=== PATIENT | female | born 1960 | race Caucasian/White ===

== ENCOUNTER 2017-12-13 17:36 | Emergency (ER) | payer OTHER ==
[~2017-12-13] VITALS: Ht 170.2 cm; Wt 57.0 kg
[2017-12-13] MEDS ORDERED: HYDROcodone/acetaminophen 5mg/325mg tablet PO ONE (21:00)
[2017-12-13 23:12] VITALS: BP 122/73
== END 2017-12-13 23:14 | disposition home or self-care (01) ==
LOC: ER 17:37
DX: I83.811 Varicose veins of right lower extremity with pain (principal); I80.01 Phlebitis and thrombophlebitis of superficial vessels of right lower extremity
CPT/HCPCS: 93971; 99284

== ENCOUNTER 2018-11-13 12:36 | Emergency (ER) | payer OTHER ==
[~2018-11-13] VITALS: Ht 170.2 cm; Wt 71.0 kg
[2018-11-13 13:32] LABS: ALANINE AMINOTRANSFERASE 18 U/L (12-78); ALBUMIN 3.8 G/DL (3.4-5.0); ALKALINE PHOSPHATASE 72 IU/L (46-116); ANION GAP 8 (8-16); ASPARTATE AMINO TRANSFERASE 13 U/L (10-37); BILIRUBIN,TOTAL 0.3 MG/DL (0.1-1.0); BLOOD UREA NITROGEN 11 MG/DL (7-18); BUN/CREATININE RATIO 17.2 (6.6-38.0); CALCIUM 9.5 MG/DL (8.5-10.1); CHLORIDE 106 MMOL/L (99-107); CREATININE 0.64 MG/DL (0.40-0.90); GLUCOSE 113 MG/DL (70-104); POTASSIUM 3.6 MMOL/L (3.5-5.1); SODIUM 143 MMOL/L (135-145); TOTAL CARBON DIOXIDE 28.7 MMOL/L (24-32); TOTAL PROTEIN 7.6 G/DL (6.4-8.2); eGFR > 90 ML/MIN
[2018-11-13 13:34] LABS: BASOPHILS % (AUTO) 0.7 % (0-1); EOSINOPHILS # (AUTO) 0.2 X10'3 (0-0.9); EOSINOPHILS % (AUTO) 5.1 % (0-6); HEMATOCRIT 35.1 % (35.0-45.0); HEMOGLOBIN 11.3 g/dl (12.0-16.0); LYMPHOCYTES # (AUTO) 1.7 X10'3 (1.1-4.8); LYMPHOCYTES % (AUTO) 38.9 % (21-51); MEAN CORPUSCULAR HEMOGLOBIN 26.3 PG (27.0-31.0); MEAN CORPUSCULAR HGB CONC 32.3 g/dL (33.0-36.5); MEAN CORPUSCULAR VOLUME 81.4 FL (78-98); MEAN PLATELET VOLUME 9.3 FL (7.4-10.4); MONOCYTES # (AUTO) 0.3 X10'3 (0-0.9); MONOCYTES % (AUTO) 6.2 % (2-12); NEUTROPHILS # (AUTO) 2.2 X10'3 (1.8-7.7); NEUTROPHILS % (AUTO) 49.1 % (42-75); PLATELET COUNT 203 X10'3 (140-440); RED BLOOD COUNT 4.31 X10'6 (4.20-5.60); WHITE BLOOD COUNT 4.4 X10'3 (4.5-11.0)
[2018-11-13 14:26] LABS: LIPASE 150 U/L (73-393)
[2018-11-13] MEDS ORDERED: iohexol 300mg/ml 100ml inj. ONE (14:27)
[2018-11-13 14:46] LABS: CLARITY,URINE SLIGHTLY CLOUDY (Clear); COLOR,URINE STRAW (Yellow); GLUCOSE, URINE NEGATIVE (Neg); KETONES,URINE NEGATIVE (Neg); LEUKOCYTE ESTERASE ,URINE SMALL (Neg); NITRITES, URINE NEGATIVE (Neg); OCCULT BLOOD,URINE TRACE-INTACT (Neg); PROTEIN,URINE NEGATIVE (Neg); UROBILINOGEN,URINE 0.2 E.U/dL (0.2-1.0)
[2018-11-13 14:47] LABS: UA COLLECTION TYPE CLN CATCH MIDSTREAM
--- NOTE | 2018-11-13 14:48 | NUR ---
IN CT SCAN
[2018-11-13 14:49] LABS: URINE HCG NEGATIVE (NEG)
[2018-11-13 14:55] LABS: SQUAMOUS EPITHELIAL CELL,UR MANY /LPF (FEW); TRANSITIONAL EPI CELLS,URINE MODERATE /HPF
[2018-11-13 14:56] LABS: MUCUS STRANDS MANY /LPF (Neg)
--- NOTE | 2018-11-13 14:56 | NUR ---
BACK FROM CT SCAN
[2018-11-13 14:58] LABS: BACTERIA,URINE FEW /HPF (Neg); RBC,URINE 0-2 /HPF (0-2)
--- NOTE | 2018-11-13 15:11 | NUR ---
SPOKE WITH DR DOMINGUEZ REGARDING PLAN OF CARE: NO NEED TO REPEAT UA, WAITING ON CT RESULTS
--- NOTE | 2018-11-13 15:15 | NUR ---
PREVIOUS NOTE WRITTENT BY DEEPAK ALEMAN
[2018-11-13 16:22] VITALS: BP 117/49
== END 2018-11-13 16:23 | disposition home or self-care (01) ==
LOC: ER 12:37
DX: R10.13 Epigastric pain (principal); D25.9 Leiomyoma of uterus, unspecified; R10.11 Right upper quadrant pain; R10.12 Left upper quadrant pain; Z98.890 Other specified postprocedural states
CPT/HCPCS: 36415; 74177; 80053; 81001; 81025; 83605; 83690; 85025; 85610; 93005; 99284; Q9967

== ENCOUNTER 2018-12-18 05:30 | Inpatient (IN) | payer OTHER ==
[2018-12-16 11:53] LABS: BASOPHILS % (AUTO) 0.9 % (0-1); EOSINOPHILS # (AUTO) 0.2 X10'3 (0-0.9); EOSINOPHILS % (AUTO) 3.5 % (0-6); LYMPHOCYTES # (AUTO) 1.5 X10'3 (1.1-4.8); LYMPHOCYTES % (AUTO) 32.8 % (21-51); MEAN CORPUSCULAR HEMOGLOBIN 27.6 PG (27.0-31.0); MEAN CORPUSCULAR HGB CONC 32.7 g/dL (33.0-36.5); MEAN CORPUSCULAR VOLUME 84.2 FL (78-98); MEAN PLATELET VOLUME 9.3 FL (7.4-10.4); MONOCYTES # (AUTO) 0.3 X10'3 (0-0.9); NEUTROPHILS # (AUTO) 2.5 X10'3 (1.8-7.7); NEUTROPHILS % (AUTO) 55.8 % (42-75); PRE OP HEMATOCRIT 38.7 % (35.0-45.0); PRE OP HEMOGLOBIN 12.7 g/dL (12.0-16.0); PRE OP PLATELET COUNT 204 X10'3 (140-440); RED BLOOD COUNT 4.59 X10'6 (4.20-5.60); RED CELL DISTRIBUTION WIDTH 19.1 % (11.5-14.5)
[2018-12-16 12:08] LABS: ALBUMIN 3.7 G/DL (3.4-5.0); ALBUMIN/GLOBULIN RATIO 0.9 (1.1-1.5); ALKALINE PHOSPHATASE 76 IU/L (46-116); BLOOD UREA NITROGEN 13 MG/DL (7-18); BUN/CREATININE RATIO 18.8 (6.6-38.0); CALCIUM 10.1 MG/DL (8.5-10.1); CHLORIDE 105 MMOL/L (99-107); CREATININE 0.69 MG/DL (0.40-0.90); PRE OP ALT 22 U/L (30-65); PRE OP ANION GAP 7 (8-16); PRE OP AST 16 U/L (10-37); PRE OP BILIRUB, TOTAL 0.4 MG/DL (0.0-1.0); PRE OP GLUCOSE 89 MG/DL (70-104); PRE OP SODIUM 141 MMOL/L (135-145); TOTAL CARBON DIOXIDE 29.5 MMOL/L (24-32); TOTAL PROTEIN 7.9 G/DL (6.4-8.2); eGFR 88 ML/MIN
[2018-12-16 16:27] LABS: ANISOCYTOSIS 2+; ELLIPTOCYTES FEW; PLATELET ESTIMATE NORMAL; POIKILOCYTOSIS FEW
[2018-12-16 16:28] LABS: ACANTHOCYTES FEW
[~2018-12-18] VITALS: Ht 170.2 cm; Wt 70.9 kg
[2018-12-18] VITALS (20 sets, daily range): BP systolic 115–148; BP diastolic 71–89
[~2018-12-18 05:30] MED LIST: CLOB15CR11; ceFOXitin 2 GM ADDvantage bag 100 ML IV ONE; famotidine 20mg tablet PO ONE
[2018-12-18] MEDS ORDERED: LIDOcaine 1% (10mg/ml) 2ml vial ONE (05:57)
[2018-12-18] MEDS: ringers solution, lacted 1,000 ML IV SCH ×4 (06:02→17:52)
[2018-12-18] MEDS ORDERED: vasoPRESSIN 20 units/ml inj. ONE (07:07)
[2018-12-18] MEDS ORDERED: neostigmine methylsulfate 1 MG/ML 10ml vial ONE (07:30)
[2018-12-18] MEDS ORDERED: ketorolac trometh. 30mg/ml inj. ONE (07:30)
[2018-12-18] MEDS ORDERED: sevoflurane 250ml liquid IH ONE (07:30)
[2018-12-18] MEDS ORDERED: rocuronium 10mg/ml inj IV ONE (07:30)
[2018-12-18] MEDS ORDERED: propofol inj 20 ML IV ONE (07:35)
[2018-12-18] MEDS ORDERED: LIDOcaine 2% (20mg/ml) 5ml vial ONE (07:35)
[2018-12-18] MEDS ORDERED: fentaNYL /PF 50mcg/ml 5ml ampule ONE (07:35)
[2018-12-18] MEDS ORDERED: midazolam 2 mg/2 ml injection ONE (07:35)
[2018-12-18] MEDS ORDERED: dexamethasone sod phosphate 4mg/ml inj. ONE (07:50)
[2018-12-18] MEDS ORDERED: ondansetron/PF 4mg/2ml inj ONE (07:50)
[2018-12-18] MEDS ORDERED: ringers solution, lacted 1,000 ML IV SCH (09:15)
[2018-12-18] MEDS ORDERED: meperidine/PF 25mg/ml syringe IV PRN ×2 (09:15)
[2018-12-18] MEDS ORDERED: proCHLORperazine 10 MG/2 ml inj IV PRN (09:15)
[2018-12-18] MEDS ORDERED: ondansetron/PF 4mg/2ml inj IV PRN ×2 (09:15→09:55)
[2018-12-18] MEDS ORDERED: morphine 4 MG/ML inj SYRINge IV PRN ×2 (09:15)
[2018-12-18] MEDS ORDERED: acetaminophen 1,000mg/100ml IV 100 ML IV ONE (09:29)
--- NOTE | 2018-12-18 09:46 | NUR ---
Received from OR via SURGICAL BED , accompanied by Anesthesiologist MAYCO and report given by Anesthesiolgist. PATIENT WITH 20G PIV IN LEFT UE RUNNING LRA T 100. LOW LATERAL ISLAND DRESSING IS CDI AT THIS TIME. PATIENT WITH 10L MASK ON, 100 % SATURATIONS. SCDS DONNED. VSS. Addendum: 12/18/18 at 0958 by Sergio Medellin RN, RN Amended: Links added.
[2018-12-18] MEDS ORDERED: diphenhydrAMINE 50 mg/ml inj IV PRN (09:55)
[2018-12-18] MEDS ORDERED: naloxone 0.4 mg/ml inj IV PRN ×2 (09:55→10:30)
[2018-12-18] MEDS ORDERED: temazepam 15mg capsule PO PRN (09:55)
[2018-12-18] MEDS ORDERED: magnesium hydroxide 30ml (MOM) UD suspension PO PRN (09:55)
[2018-12-18] MEDS ORDERED: normal saline 500ml IV soln 500 ML IV PRN (09:55)
[2018-12-18] MEDS ORDERED: mag hydrox/Alum hydrox/simeth 30ml oral suspension PO PRN (09:55)
[2018-12-18] MEDS ORDERED: ketorolac trometh. 30mg/ml inj. IV PRN (09:55)
[2018-12-18] MEDS ORDERED: CADD PCA waste documentation MC PRN ×2 (09:55→10:30)
[2018-12-18] MEDS ORDERED: metoclopramide 5 mg/ml inj IV PRN (09:55)
[2018-12-18] MEDS: meperidine/PF 25mg/ml syringe IV PRN ×2 (10:03→10:36)
[2018-12-18] MEDS ORDERED: oxyCODONE/APAP 5-325mg tablet PO PRN ×2 (10:35)
[2018-12-18] MEDS: HYDROmorphone/NS 1 mg/ml CADD 50 ML IV SCH ×7 (10:38→23:00)
--- NOTE | 2018-12-18 10:56 | NUR ---
ALL CRITERIA FOR TRANSFER TO THE FLOOR HAS BEEN ACHIEVED. VSS. BED LOW, CALL LIGHT AND VS. SET IN PLACE. RN PRESENT TO ACCEPT CARE. PATIENT RESTING COMFORTABLY IN BED. BELONGINGS SENT WITH PATIENT. DRESSINGS CDI. PATIENT EDUCATED ABOUT PACKAGE COLLECTOR USAGE. PATIENTS RN ELAYNE PRESENT TO ACCEPT CARE. Addendum: 12/18/18 at 1113 by Sergio Hampton - ASH RN Amended: Links added.
[2018-12-18] MEDS ORDERED: HYDROmorphone/NS 1 mg/ml CADD 50 ML IV SCH (11:00)
--- NOTE | 2018-12-18 11:00 | NUR ---
Report received from ASH Hill and patient arrived to the floor with stable vitals 140/75 BP, HR 47, 99% oxygen saturation on 3L of oxygen, temperature 97.4 pt Meghan lovell set up and educated patient on use of SIGNALING DESIGN ENGINEER.
[2018-12-18] MEDS: simethicone 80mg chew tab PO SCH ×2 (13:25→19:26)
--- NOTE | 2018-12-18 18:09 | NUR ---
Problems reprioritized. Patient report given, questions answered & plan of care reviewed with ASH Stanton.
[2018-12-18] MEDS: docusate sod 100mg capsule PO SCH ×2 (19:26→20:00)
[2018-12-19] MEDS: HYDROmorphone/NS 1 mg/ml CADD 50 ML IV SCH ×7 (01:00→13:00)
[2018-12-19] MEDS: ringers solution, lacted 1,000 ML IV SCH ×3 (01:19→10:18)
[2018-12-19 05:20] LABS: ALBUMIN 3.1 G/DL (3.4-5.0); ANION GAP 7 (8-16); BLOOD UREA NITROGEN 10 MG/DL (7-18); BUN/CREATININE RATIO 16.4 (6.6-38.0); CALCIUM 9.1 MG/DL (8.5-10.1); CHLORIDE 105 MMOL/L (99-107); CREATININE 0.61 MG/DL (0.40-0.90); GLUCOSE 104 MG/DL (70-104); POTASSIUM 4.5 MMOL/L (3.5-5.1); SODIUM 140 MMOL/L (135-145); TOTAL CARBON DIOXIDE 27.8 MMOL/L (24-32); eGFR > 90 ML/MIN
[2018-12-19 05:24] LABS: BASOPHILS % (AUTO) 0.3 % (0-1); EOSINOPHILS % (AUTO) 0.3 % (0-6); HEMATOCRIT 35.9 % (35.0-45.0); HEMOGLOBIN 11.9 g/dl (12.0-16.0); LYMPHOCYTES # (AUTO) 1.3 X10'3 (1.1-4.8); LYMPHOCYTES % (AUTO) 22.6 % (21-51); MEAN CORPUSCULAR HEMOGLOBIN 27.8 PG (27.0-31.0); MEAN CORPUSCULAR HGB CONC 33.1 g/dL (33.0-36.5); MEAN PLATELET VOLUME 9.6 FL (7.4-10.4); MONOCYTES # (AUTO) 0.6 X10'3 (0-0.9); MONOCYTES % (AUTO) 10.5 % (2-12); NEUTROPHILS # (AUTO) 3.9 X10'3 (1.8-7.7); NEUTROPHILS % (AUTO) 66.3 % (42-75); PLATELET COUNT 155 X10'3 (140-440); RED BLOOD COUNT 4.27 X10'6 (4.20-5.60); RED CELL DISTRIBUTION WIDTH 18.7 % (11.5-14.5); WHITE BLOOD COUNT 5.8 X10'3 (4.5-11.0)
--- NOTE | 2018-12-19 06:10 | NUR ---
Patient in room [facility]. I have received report from ASH [place] and had the opportunity to ask questions and assume patient care.
--- NOTE | 2018-12-19 06:10 | NUR ---
Problems reprioritized. Patient report given, questions answered & plan of care reviewed with Cally ALEMAN. Addendum: 12/19/18 at 0616 by Romy Cook RN Amended: Links added.
[2018-12-19 06:27] LABS: ANISOCYTOSIS 2+; MICROCYTOSIS 1+; PLATELET ESTIMATE NORMAL; POIKILOCYTOSIS FEW
[2018-12-19] MEDS: docusate sod 100mg capsule PO SCH ×2 (08:00→08:54)
[2018-12-19 08:07] VITALS: BP 132/74
[2018-12-19] MEDS: simethicone 80mg chew tab PO SCH ×2 (08:54→13:00)
[2018-12-19 11:20] VITALS: BP 141/74
== END 2018-12-19 13:20 | disposition home or self-care (01) | DRG 743 ==
LOC: PAS IN 05:30 → EDSTATUS 07:30 → SUR 3N 09:52
PROVIDERS: ADMIT Obstetrics & Gynecology; ATTEND Obstetrics & Gynecology
PROC: 0UT70ZZ Resection of Bilateral Fallopian Tubes, Open Approach (ICD-10-PCS; 2018-12-18)
PROC: 0TJB8ZZ Inspection of Bladder, Via Natural or Artificial Opening Endoscopic (ICD-10-PCS; 2018-12-18)
PROC: 0UT90ZZ Resection of Uterus, Open Approach (ICD-10-PCS; principal; 2018-12-18 07:30)
DX: D25.1 Intramural leiomyoma of uterus (principal); N83.8 Other noninflammatory disorders of ovary, fallopian tube and broad ligament; F41.9 Anxiety disorder, unspecified; Z82.3 Family history of stroke
CPT/HCPCS: 36415; 80048; 80053; 82948; 85025; 86885; 86900; 86901; 87081; A4355; A4618; A6250; A7000; C1758; G0378; J0131; J0694; J1100; J1885; J2001; J2175; J2250; J2270; J2405; J2704; J2710; J3010; J3490; J7030; J7120

== ENCOUNTER 2024-03-30 17:28 | Emergency (ER) | payer OTHER ==
[~2024-03-30] VITALS: Ht 170.2 cm; Wt 54.8 kg
[~2024-03-30 17:28] MED LIST changes: -ceFOXitin 2 GM ADDvantage bag 100 ML IV ONE; -famotidine 20mg tablet PO ONE
[2024-03-30] MEDS ORDERED: PRED50TA PO (18:08)
[2024-03-30] MEDS ORDERED: AMOX500C2 PO (18:08)
[2024-03-30 18:10] VITALS: BP 122/68; PULSE 80; RESP 16; TEMP 98.9; O2SAT 98
== END 2024-03-30 18:14 | disposition home or self-care (01) ==
LOC: ER 17:29
DX: J02.9 Acute pharyngitis, unspecified (principal); Z98.890 Other specified postprocedural states
CPT/HCPCS: 99283